=== PATIENT | female | born 1960 ===

== ENCOUNTER 2017-03-20 01:37 | Emergency (ER) | payer SELFPAY ==
[2017-03-20 01:37] VITALS: BMI 24.4
--- NOTE | 2017-03-20 02:05 | C.PDOC ---
History Of Present Illness Patient is a 57 y/o female who presents to the ED with complaints of abdominal pain, nausea, and vomiting after drinking a small gulp of questionable Windex in a water bottle. Patient describes abdominal pain as crampy. No other physical complaints at this time. Time Seen by Provider: 03/20/17 02:05 Chief Complaint (Nursing): Ingestion, Accidental History Per: Patient History/Exam Limitations: no limitations Onset/Duration Of Symptoms: Hrs Current Symptoms Are (Timing): Still Present Recent travel outside of the [place]: No Past Medical History Reviewed: Historical Data, Nursing Documentation, Vital Signs Vital Signs: Last Vital Signs Temp 97.9 F 03/20/17 01:59 Pulse 90 03/20/17 01:59 Resp 18 03/20/17 01:59 BP 167/94 H 03/20/17 01:59 Pulse Ox 98 03/20/17 02:29 - Medical History PMH: HTN, Migraine Denies: Chronic Kidney Disease Surgical History: No Surg Hx Family History: States: No Known Family Hx - Social History Hx Alcohol Use: No Hx Substance Use: No Review Of Systems Gastrointestinal: Positive for: Nausea, Vomiting, Abdominal Pain (crampy) Physical Exam - Physical Exam Appears: Well, Non-toxic, No Acute Distress Skin: Normal Color, Warm, Dry Head: Normacephalic Oral Mucosa: Moist Tongue: Normal Appearing Throat: Normal, No Erythema, No Drooling Cardiovascular: Rhythm Regular, No Murmur Respiratory: Normal Breath Sounds, No Rhonchi, No Stridor, No Wheezing Gastrointestinal/Abdominal: Soft, No Tenderness Neurological/Psych: Oriented x3, Normal Speech, Normal Cognition ED Course And Treatment - Laboratory Results Result Diagrams: 03/20/17 02:42 03/20/17 02:42 ECG: Interpreted By Me, Viewed By Me ECG Rhythm: Sinus Rhythm (72), Nonspecific Changes O2 Sat by Pulse Oximetry: 98 Pulse Ox Interpretation: Normal - Radiology CXR: Interpreted by Me, Viewed By Me CXR Interpretation: No: Infiltrates, Fracture, Pnemothorax Reevaluation Time: 03:13 Reassessment Condition: Improved Medical Decision Making Medical Decision Making: Plan: * EKG * blood work * UA * Pepcid * IV fluids Disposition Counseled Patient/Family Regarding: Studies Performed, Diagnosis, Need For Followup - Disposition Referrals: [facility] [Outside] [facility] [Outside] Disposition: HOME/ ROUTINE Disposition Time: 02:05 Condition: FAIR Additional Instructions: Please return if symptoms recur Instructions: Abdominal Pain (ED) Forms: [facility] (Samoan) Print Language: BULGARIAN - Clinical Impression Clinical Impression: Accidental ingestion of substance - Scribe Statement The provider has reviewed the documentation as recorded by the Scribe Misty Ohara All medical record entries made by the Scribe were at my direction and personally dictated by me. I have reviewed the chart and agree that the record accurately reflects my personal performance of the history, physical exam, medical decision making, and the department course for this patient. I have also personally directed, reviewed, and agree with the discharge instructions and disposition.
[2017-03-20] MEDS ORDERED: Lactated Ringer's 1,000 ML IV STA (02:08)
[2017-03-20] MEDS ORDERED: Sucralfate 1 gm/10 ml Oral Susp UD PO STA (02:30)
[2017-03-20 02:39] VITALS: O2SAT 98
[2017-03-20 02:45] LABS: BASO % 0.6 % (0.0-2.0); EOS # 0.1 K/uL (0.0-0.7); EOS % 1.9 % (0.0-4.0); HEMATOCRIT 35.2 % (34.0-47.0); LYMPH # 2.6 K/uL (1.0-4.3); MEAN CELL VOLUME 86.7 fL (81.0-99.0); MEAN CORPUSCULAR HEMOGLOBIN 29.2 pg (27.0-31.0); MEAN CORPUSCULAR HGB CONC 33.6 g/dL (33.0-37.0); MEAN PLATELET VOLUME 8.1 fL (7.2-11.7); MONO # 0.5 K/uL (0.0-0.8); MONO % 9.3 % (0.0-10.0); RED CELL DISTRIBUTION WIDTH 13.6 % (11.5-14.5); WHITE BLOOD COUNT 5.7 K/uL (4.8-10.8)
[2017-03-20 02:52] LABS: RBC URINE 1 /hpf (0-3); URINE BACTERIA OCC (<OCC); URINE BILIRUBIN NEGATIVE (NEGATIVE); URINE BLOOD NEGATIVE (NEGATIVE); URINE COLOR Straw (YELLOW); URINE GLUCOSE (UA) NORMAL (Normal); URINE KETONE NEGATIVE (NEGATIVE); URINE LEUKOCYTE ESTERASE NEG Leu/uL (Negative); URINE PROTEIN NEGATIVE (NEGATIVE); URINE UROBILINOGEN NORMAL mg/dL (0.2-1.0); WBC URINE 3 /hpf (0-5)
[2017-03-20] MEDS ORDERED: Sucralfate 1 gm/10 ml Oral Susp UD ONE (02:55)
[2017-03-20 03:07] LABS: ALCOHOL SERUM < 10 mg/dl (0-10); ALKALINE PHOSPHATASE 74 U/L (38-126); ALT/SGPT 32 U/L (9-52); AST/SGOT 23 U/L (14-36); BILIRUBIN,TOTAL 0.5 mg/dL (0.2-1.3); BLOOD UREA NITROGEN 13 mg/dL (7-17); CALCIUM 8.4 mg/dl (8.6-10.4); CARBON DIOXIDE 25 mmol/L (22-30); CHLORIDE 104 mmol/L (98-107); GFR AFRICAN-AMERICAN > 60; GLUCOSE,RANDOM 84 mg/dL (65-105); POTASSIUM 3.7 mmol/L (3.6-5.2); SODIUM 134 mmol/L (132-148); TOTAL PROTEIN 7.6 g/dL (6.3-8.3)
[2017-03-20 03:25] VITALS: TEMP 98.2
[2017-03-20 05:18] VITALS: BP 129/74; PULSE 78; RESP 20
--- NOTE | 2017-03-20 08:20 | RAD ---
PROCEDURE: CHEST RADIOGRAPH, 1 VIEW HISTORY: Detox/Psy COMPARISON: None available. FINDINGS: LUNGS: Clear. PLEURA: No pneumothorax or pleural fluid seen. CARDIOVASCULAR: Normal. OSSEOUS STRUCTURES: No significant abnormalities. VISUALIZED UPPER ABDOMEN: Normal. OTHER FINDINGS: None. IMPRESSION: No active disease.
--- NOTE | 2017-03-22 10:38 | CARD ---
APPROVED REPORT EKG Measurement Heart [id number] <Conclusion> Normal sinus rhythm Normal ECG
== END 2017-03-20 05:16 | disposition home or self-care (01) ==
LOC: C.ER 01:37
DX: T65.891A Toxic effect of other specified substances, accidental (unintentional), initial encounter (principal)
CPT/HCPCS: 71010; 80053; 81001; 85025; 93005; 96361; 96374; 99283; G0480; J7120

== ENCOUNTER 2017-09-29 10:38 | Emergency (ER) | payer OTHER ==
[2017-09-29 10:38] VITALS: BMI 24.4
[2017-09-29 10:49] VITALS: O2SAT 97
--- NOTE | 2017-09-29 11:29 | C.PDOC ---
History Of Present Illness Patient is a 57 y/o female, with a Hx of HTN, who presents to the ED with a complaint of right wrist pain s/p trip and fall on the stairs this morning at 6: 30. Patient initially went into work, but was told to come to [facility] for evaluation. Denies any change in sensation. Right hand dominant. Patient admits to being compliant with HTN medication and took meds this morning. Time Seen by Provider: 09/29/17 11:06 Chief Complaint (Nursing): Upper Extremity Problem/Injury History Per: Patient History/Exam Limitations: no limitations Onset/Duration Of Symptoms: Hrs (this morning at 6:30am) Recent travel outside of the [place]: No Past Medical History Reviewed: Historical Data, Nursing Documentation, Vital Signs Vital Signs: Last Vital Signs Temp 98.2 F 09/29/17 12:00 Pulse 75 09/29/17 12:00 Resp 16 09/29/17 12:00 BP 150/90 09/29/17 12:00 Pulse Ox 97 09/29/17 16:38 - Medical History PMH: HTN, Migraine Denies: Chronic Kidney Disease Surgical History: No Surg Hx Family History: States: No Known Family Hx - Social History Hx Tobacco Use: No Hx Alcohol Use: No Hx Substance Use: No - Immunization History Hx Tetanus Toxoid Vaccination: Yes Hx Influenza Vaccination: No Hx Pneumococcal Vaccination: No Review Of Systems Musculoskeletal: Positive for: Other (right wrist pain) Neurological: Positive for: Other (negative change in sensation). Negative for : Weakness, Numbness Physical Exam - Physical Exam Appears: Non-toxic, No Acute Distress Skin: Warm, Dry, Ecchymosis (diffusely to right wrist) Head: Atraumatic, Normacephalic Eye(s): bilateral: Normal Inspection, EOMI Oral Mucosa: Moist Neck: Normal ROM, Supple Chest: Symmetrical Respiratory: No Accessory Muscle Use Extremity: No Normal ROM (decreased ROM secondary to pain), Capillary Refill (< 2 sec ), Deformity, Swelling (diffusely to right wrist) Pulses: Left Radial: Normal, Right Radial: Normal Neurological/Psych: Oriented x3, Normal Speech, Normal Sensation ED Course And Treatment O2 Sat by Pulse Oximetry: 97 - Other Rad Right forearm XR X-Ray: Interpreted by Me, Viewed By Me Interpretation: PROCEDURE: Radiographs of the Right Forearm. HISTORY: TRAUMA. COMPARISON: None available. TECHNIQUE: Frontal and lateral views obtained. FINDINGS: BONES: There is an acute comminuted impacted intra- articular fracture in the distal radius with 4 mm radial displacement. No dislocation. Acute transverse nondisplaced fracture in the styloid process of ulna. JOINT SPACES: Preserved. OTHER FINDINGS: None. IMPRESSION: Acute comminuted impacted intra-articular fracture in the distal radius with 4 mm radial displacement. No dislocation. Acute transverse nondisplaced fracture in the styloid process of ulna. Right wrist XR X-Ray: Interpreted by Me, Viewed By Me Interpretation: PROCEDURE: Right Wrist Radiographs. . HISTORY: TRAUMA. COMPARISON: None. FINDINGS: BONES: There is an acute comminuted displaced intra-articular fracture in the distal radius with 4 mm radial displacement and impaction of fracture fragments. There is an acute transverse nondisplaced fracture in the styloid process of ulna. Bone alignment is normal. There is diffuse bone demineralization. JOINTS: Normal. No dislocation. SOFT TISSUES: There is periarticular soft tissue swelling in the wrist joint. OTHER FINDINGS: None. IMPRESSION: Acute comminuted impacted intra-articular fracture in the distal radius with 4 mm radial displacement. No dislocation. Acute transverse nondisplaced fracture in the styloid process of ulna. Right elbow XR X-Ray: Interpreted by Me, Viewed By Me Interpretation: PROCEDURE: Radiographs of the right elbow. HISTORY: TRAUMA. COMPARISON: No prior. FINDINGS: BONES: Bone alignment and mineralization are normal. There is no acute displaced fracture or bone destruction. JOINTS: Normal. No osteoarthritis. SOFT TISSUES: Normal. JOINT EFFUSION: None. OTHER FINDINGS: None. IMPRESSION: No acute displaced fracture or dislocation. Progress Note: Tylenol and oxycodone administered. Right elbow XR, right wrist XR, and right forearm XR ordered. Two calls placed to Dr Sweeney, no call back. Sugar tong applied by me and sue. Pt has claudia care and ortho clinic is held today therefore it was instructed to go to the clinic directly after discharge. Case discussed and XR evaluated by Dr Woodruff, agreed upon plan and discharge. Disposition - Disposition Referrals: Lan Sweeney III, MD [Staff Provider] - [facility] [Outside] Disposition: HOME/ ROUTINE Disposition Time: 11:26 Condition: STABLE Additional Instructions: Rest, ice and elevate the area. Do not get the splint wet. Follow up with bone doctor in 1-2 days. Return to ER if symptoms persist or worsen. Descanse, hiele y eleve el az. No mojes la frula. Aubree un seguimiento con el mdico de los huesos en 1-2 jones. Regrese a la rosalinda de emergencias si los s ntomas persisten o empeoran. Prescriptions: oxyCODONE/Acetaminophen [Percocet 5/325 mg Tab] 1 tab PO QID PRN #20 tab PRN Reason: Pain Instructions: Wrist Fracture (DC) Forms: [employer] (Uzbek), Work Excuse Print Language: FRISIAN - Clinical Impression Clinical Impression: Wrist fracture - Scribe Statement The provider has reviewed the documentation as recorded by the Scribe Misty Ohara All medical record entries made by the Scribe were at my direction and personally dictated by me. I have reviewed the chart and agree that the record accurately reflects my personal performance of the history, physical exam, medical decision making, and the department course for this patient. I have also personally directed, reviewed, and agree with the discharge instructions and disposition.
[2017-09-29] MEDS ORDERED: oxyCODONE 5 mg Immediate Release Tab PO STA (12:00)
[2017-09-29] MEDS ORDERED: oxyCODONE 5 mg Immediate Release Tab ONE (12:10)
[2017-09-29 12:22] VITALS: BP 150/90; PULSE 75; RESP 16; TEMP 98.2
--- NOTE | 2017-09-29 16:07 | RAD ---
PROCEDURE: Radiographs of the right elbow. HISTORY: TRAUMA COMPARISON: No prior. FINDINGS: BONES: Bone alignment and mineralization are normal. There is no acute displaced fracture or bone destruction. JOINTS: Normal. No osteoarthritis. SOFT TISSUES: Normal. JOINT EFFUSION: None. OTHER FINDINGS: None. IMPRESSION: No acute displaced fracture or dislocation.
--- NOTE | 2017-09-29 16:09 | RAD ---
PROCEDURE: Radiographs of the Right Forearm HISTORY: TRAUMA COMPARISON: None available. TECHNIQUE: Frontal and lateral views obtained. FINDINGS: BONES: There is an acute comminuted impacted intra-articular fracture in the distal radius with 4 mm radial displacement. No dislocation. Acute transverse nondisplaced fracture in the styloid process of ulna. JOINT SPACES: Preserved. OTHER FINDINGS: None. IMPRESSION: Acute comminuted impacted intra-articular fracture in the distal radius with 4 mm radial displacement. No dislocation. Acute transverse nondisplaced fracture in the styloid process of ulna.
--- NOTE | 2017-09-29 16:09 | RAD ---
PROCEDURE: Right Wrist Radiographs. HISTORY: TRAUMA COMPARISON: None. FINDINGS: BONES: There is an acute comminuted displaced intra-articular fracture in the distal radius with 4 mm radial displacement and impaction of fracture fragments. There is an acute transverse nondisplaced fracture in the styloid process of ulna. Bone alignment is normal. There is diffuse bone demineralization. JOINTS: Normal. No dislocation. SOFT TISSUES: There is periarticular soft tissue swelling in the wrist joint. OTHER FINDINGS: None. IMPRESSION: Acute comminuted impacted intra-articular fracture in the distal radius with 4 mm radial displacement. No dislocation. Acute transverse nondisplaced fracture in the styloid process of ulna.
== END 2017-09-29 12:15 | disposition home or self-care (01) ==
LOC: C.ER 10:38
DX: S52.501A Unspecified fracture of the lower end of right radius, initial encounter for closed fracture (principal); W10.9XXA Fall (on) (from) unspecified stairs and steps, initial encounter; Y92.89 Other specified places as the place of occurrence of the external cause

== ENCOUNTER 2018-05-12 09:58 | Emergency (ER) | payer OTHER ==
[2018-05-12 09:58] VITALS: BMI 27.1
[2018-05-12 10:16] VITALS: O2SAT 98
[2018-05-12] MEDS ORDERED: guaiFENesin DM 200 mg-20 mg/10 ml UD PO STA (11:16)
--- NOTE | 2018-05-12 11:24 | C.PDOC ---
History Of Present Illness 58 year old female with PMHx of HTN presents with Upper Respiratory symptoms x 3 weeks including: chest congestion, headache, chills, productive cough, sneezing, sore throat, and subjective fever. Patient has only used Ibuprofen for her symptoms without any relief. She denies any chest pain, SOB, nausea, vomiting, body aches, urinary symptoms, changes in bowel habits. ROS: As stated above PMHx: HTN PSHx: right hand surgery Allergies: NKDA SocialHx: Denies tobacco, EtoH, or illicit drug use FamHx: Mom - HTN Meds: Losartan Time Seen by Provider: 05/12/18 10:52 Chief Complaint (Nursing): Flu-like Symptoms Past Medical History Vital Signs: Last Vital Signs Temp 98.1 F 05/12/18 10:14 Pulse 96 H 05/12/18 10:14 Resp 14 05/12/18 10:14 BP 155/91 H 05/12/18 10:14 Pulse Ox 98 05/12/18 10:14 - Medical History PMH: Arthritis, HTN, Migraine Denies: Chronic Kidney Disease Surgical History: (x2) Family History: States: Unknown Family Hx - Social History Hx Tobacco Use: No Hx Alcohol Use: No Hx Substance Use: No - Immunization History Hx Tetanus Toxoid Vaccination: Yes Hx Influenza Vaccination: No Hx Pneumococcal Vaccination: No Review Of Systems Except As Marked, All Systems Reviewed And Found Negative. (As per HPI) Physical Exam - Physical Exam Appears: Well, Non-toxic, No Acute Distress Skin: Normal Color Head: Atraumatic, Normacephalic Ear(s): Bilateral: Normal Nose: Normal Oral Mucosa: Moist Tongue: Normal Appearing Lips: Normal Appearing Throat: Erythema, No Exudate, No Mass Neck: Normal, Trachea Midline Lymphatic: No Adenopathy (Cervical/Supraclavicular) Cardiovascular: Rhythm Regular, No Friction Rub, No Murmur Respiratory: Normal Breath Sounds, No Accessory Muscle Use, No Rales, No Rhonchi Gastrointestinal/Abdominal: Normal Exam, Bowel Sounds, Soft, No Tenderness Neurological/Psych: Oriented x3 ED Course And Treatment O2 Sat by Pulse Oximetry: 98 Medical Decision Making Medical Decision Making: URI Robitussin DM Rapid Flu Rapid Strep Headache Tylenol 675mg ONCE Disposition - Disposition Referrals: [facility] [Outside] Disposition: HOME/ ROUTINE Disposition Time: 12:35 Condition: FAIR Prescriptions: guaiFENesin/Dextromethorphan [guaiFENesin-DM] 10 ml PO Q6H PRN 7 Days udc PRN Reason: Cough Oseltamivir Phosphate [Tamiflu] 75 mg PO BID #10 capsule Instructions: Flu, Adult (DC) Forms: [employer] (Sao Tomean) - Clinical Impression Clinical Impression: URI (upper respiratory infection), Flu-like symptoms
[2018-05-12] MEDS ORDERED: guaiFENesin DM 100 mg-10 mg/5 ml UD ONE (11:43)
[2018-05-12 12:18] VITALS: PULSE 78; RESP 18; TEMP 98.3
[2018-05-12 12:19] VITALS: BP 134/80
== END 2018-05-12 12:41 | disposition home or self-care (01) ==
LOC: C.ER 09:58
DX: J11.1 Influenza due to unidentified influenza virus with other respiratory manifestations (principal)

== ENCOUNTER 2018-05-29 10:30 | Emergency (ER) | payer OTHER, SELFPAY ==
[2018-05-29 10:31] VITALS: BMI 27.1
[2018-05-29] MEDS ORDERED: Naproxen 550 mg Tab PO STA (11:35)
--- NOTE | 2018-05-29 11:38 | C.PDOC ---
History Of Present Illness 58 year old female presents to the ED for evaluation of non-productive cough which began one week ago. Patient states she started having diffuse body aches, chills and headaches yesterday. She denies chest pain, shortness of breath, abdominal pain, nausea, vomiting, diarrhea and dysuria. Time Seen by Provider: 05/29/18 11:04 Chief Complaint (Nursing): Flu-like Symptoms History Per: Patient History/Exam Limitations: no limitations Onset/Duration Of Symptoms: Other (one week ) Current Symptoms Are (Timing): Still Present Associated Symptoms: Fever, Chills, Cough. denies: Sputum, Nausea, Vomiting, Diarrhea Additional History Per: Patient Past Medical History Reviewed: Historical Data, Nursing Documentation, Vital Signs Vital Signs: Last Vital Signs Temp 101.7 F H 05/29/18 10:43 Pulse 113 H 05/29/18 10:36 Resp 20 05/29/18 10:36 BP 130/84 05/29/18 10:36 Pulse Ox 97 05/29/18 10:36 - Medical History PMH: Arthritis, HTN, Migraine Denies: Chronic Kidney Disease Surgical History: (x2) Family History: States: Unknown Family Hx - Social History Hx Tobacco Use: No Hx Alcohol Use: No Hx Substance Use: No - Immunization History Hx Tetanus Toxoid Vaccination: Yes Hx Influenza Vaccination: No Hx Pneumococcal Vaccination: No Review Of Systems Constitutional: Positive for: Fever, Chills Cardiovascular: Negative for: Chest Pain Respiratory: Positive for: Cough. Negative for: Shortness of Breath, Sputum Gastrointestinal: Negative for: Nausea, Vomiting, Abdominal Pain, Diarrhea Genitourinary: Negative for: Dysuria Physical Exam - Physical Exam Appears: Non-toxic, No Acute Distress, Other (uncomfortable ) Skin: Normal Color, Warm, Dry, No Rash Head: Atraumatic, Normacephalic Eye(s): bilateral: Normal Inspection Oral Mucosa: Moist Throat: Normal, No Erythema, No Exudate Neck: Supple Chest: Symmetrical, No Deformity, No Tenderness Cardiovascular: Rhythm Regular, No Murmur, Other (mild tachycardia ) Respiratory: Normal Breath Sounds, No Rales, No Rhonchi, No Wheezing Gastrointestinal/Abdominal: Soft, No Tenderness, No Guarding, No Rebound Extremity: Normal ROM, Capillary Refill (less than 2 seconds ) Neurological/Psych: Oriented x3, Normal Speech, Normal Cognition ED Course And Treatment O2 Sat by Pulse Oximetry: 97 (on RA) Pulse Ox Interpretation: Normal - Other Rad CXR X-Ray: Viewed By Me, Read By Radiologist Interpretation: Date of service: 05/29/2018. HISTORY: Cough and fever. COMPARISON: No prior. TECHNIQUE: Chest PA and lateral. FINDINGS: LINES AND TUBES: None. LUNG AND PLEURA: The lungs are well inflated and clear. No pleural effusion or pneumothorax. HEART AND MEDIASTINUM: The heart is not enlarged. No aortic atherosclerotic calcifications present. The hilar and mediastinal contours are within normal limits. SKELETAL STRUCTURES: The bony structures are within normal limits for the patient's age. VISUALIZED UPPER ABDOMEN: Normal. OTHER FINDINGS: None. IMPRESSION: No active pulmonary disease. Progress Note: CXR ordered to rule out pneumonia. Results are unremarkable. Naprixen PO, Tylenol PO and Tamiflu PO given. On reassessment, patient is resting comfortably, showing no signs of distress and is stable for discharge. She is advised to f/u with PMD within 1-2 days for further evaluation. Disposition Counseled Patient/Family Regarding: Studies Performed, Diagnosis, Need For Followup, Rx Given - Disposition Referrals: [facility] [Outside] Disposition: HOME/ ROUTINE Disposition Time: 11:45 Condition: STABLE Additional Instructions: FOLLOW UP WITH YOUR DOCTOR/CLINIC IN 1-2 DAYS USE MEDICATIONS DIRECTED DRINK PLENTY OF FLUIDS RETURN TO EMERGENCY ROOM IF SYMPTOMS WORSEN SEGUIR CON PARK MDICO / CLNICA EN 1-2 [place] [facility] [place] DIRIGE BEBER MUCHO LQUIDO VUELVA A LA LINDEN DE EMERGENCIA SI LOS SNTOMAS SE IRVIN PROBLEMAS Prescriptions: Benzonatate [Tessalon Perles] 100 mg PO BID PRN #15 sgl PRN Reason: Cough Naproxen 375 mg PO BID PRN #20 tablet PRN Reason: pain Oseltamivir Phosphate [Tamiflu] 75 mg PO BID #10 capsule Instructions: Viral Syndrome (DC) Forms: [facility] (Amharic), Work Excuse Print Language: KISWAHILI - Clinical Impression Clinical Impression: Influenza-like illness, Viral syndrome - Scribe Statement The provider has reviewed the documentation as recorded by the Scribe (Cheryl Wills) Provider Attestation: All medical record entries made by the Scribe were at my direction and personally dictated by me. I have reviewed the chart and agree that the record accurately reflects my personal performance of the history, physical exam, medical decision making, and the department course for this patient. I have also personally directed, reviewed, and agree with the discharge instructions and disposition.
--- NOTE | 2018-05-29 11:38 | RAD ---
Date of service: 05/29/2018 HISTORY: Cough and fever COMPARISON: No prior. TECHNIQUE: Chest PA and lateral FINDINGS: LINES AND TUBES: None. LUNG AND PLEURA: The lungs are well inflated and clear. No pleural effusion or pneumothorax. HEART AND MEDIASTINUM: The heart is not enlarged. No aortic atherosclerotic calcifications present. The hilar and mediastinal contours are within normal limits. SKELETAL STRUCTURES: The bony structures are within normal limits for the patient's age. VISUALIZED UPPER ABDOMEN: Normal. OTHER FINDINGS: None. IMPRESSION: No active pulmonary disease.
[2018-05-29 11:45] VITALS: BP 119/74; PULSE 103; RESP 18; TEMP 100.7
[2018-05-29] MEDS ORDERED: Naproxen 550 mg Tab PO ONE (11:46)
[2018-05-29 13:03] VITALS: O2SAT 97
== END 2018-05-29 11:47 | disposition home or self-care (01) ==
LOC: C.ER 10:30
DX: J11.1 Influenza due to unidentified influenza virus with other respiratory manifestations (principal); I10 Essential (primary) hypertension

== ENCOUNTER 2018-09-19 09:58 | Emergency (ER) | payer OTHER ==
[2018-09-19 09:58] VITALS: BMI 27.1
[2018-09-19 10:07] VITALS: RESP 18; TEMP 98.6; O2SAT 99
--- NOTE | 2018-09-19 10:34 | C.PDOC ---
History Of Present Illness 58 y/o female pt with hx of HTN and migraine presents to the ER c/o insect bite on her face at 5 am. Associated sx includes insect bite on the right side of the bridge of her nose, insect bite on left side of neck, and swelling of the right upper eyelid and right under eye. Pt denies any fever, chills, SOB, chest pain, eye redness, skin redness and cough. Pt takes 2.5 mg of amlodipine and 50 mg of losartan for her HTN. Time Seen by Provider: 09/19/18 10:25 Chief Complaint (Nursing): Allergic Reaction History Per: Patient History/Exam Limitations: no limitations Onset/Duration Of Symptoms: Hrs Current Symptoms Are (Timing): Still Present Possible Cause: Insect Bite Past Medical History Reviewed: Historical Data, Nursing Documentation, Vital Signs Vital Signs: Last Vital Signs Temp 98.6 F 09/19/18 10:04 Pulse 78 09/19/18 10:04 Resp 18 09/19/18 10:04 BP 151/86 H 09/19/18 10:04 Pulse Ox 99 09/19/18 10:04 Primary Care Provider: FAMILY PROVIDER,NO - Medical History PMH: Arthritis, HTN, Migraine Surgical History: (x2) Family History: States: Unknown Family Hx - Social History Hx Tobacco Use: No Hx Alcohol Use: No Hx Substance Use: No - Immunization History Hx Tetanus Toxoid Vaccination: No Hx Influenza Vaccination: No Hx Pneumococcal Vaccination: No Review Of Systems Except As Marked, All Systems Reviewed And Found Negative. Constitutional: Negative for: Fever, Chills Eyes: Positive for: Eyelid Inflammation (R: upper and lower). Negative for: Redness Cardiovascular: Negative for: Chest Pain Respiratory: Negative for: Cough, Shortness of Breath Skin: Positive for: Rash (right side of nose and left side of neck ). Negative for: Other (skin redness) Physical Exam - Physical Exam Appears: Non-toxic, No Acute Distress Skin: Warm, Dry Head: Normacephalic, Swelling (of the left confucianism ), Other (insect bite on the left confucianism ) Eye(s): right: Eyelid Inflammation (upper eye lid and under eye ) Nose: Other (insetc bite on right side of nose bridge ) Cardiovascular: Rhythm Regular Respiratory: Normal Breath Sounds Neurological/Psych: Oriented x3, Normal Speech ED Course And Treatment O2 Sat by Pulse Oximetry: 99 (RA) Pulse Ox Interpretation: Normal Progress Note: Plans: -- benadryl. -- pepcid. -- prednisone Disposition - Disposition Disposition: HOME/ ROUTINE Disposition Time: 12:19 Condition: STABLE Additional Instructions: Follow up with your PMD within 1-2 days. Return to ED if feel worse. 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 - Scribe Statement The provider has reviewed the documentation as recorded by the Scribmiroslava Long Do All medical record entries made by the Scribe were at my direction and personally dictated by me. I have reviewed the chart and agree that the record accurately reflects my personal performance of the history, physical exam, medical decision making, and the department course for this patient. I have also personally directed, reviewed, and agree with the discharge instructions and disposition.
[2018-09-19 12:31] VITALS: BP 138/87; PULSE 70
== END 2018-09-19 12:31 | disposition home or self-care (01) ==
LOC: C.ER 09:58
DX: T78.40XA Allergy, unspecified, initial encounter (principal)